=== PATIENT | female | born 1980 | race Caucasian/White ===

== ENCOUNTER 2023-06-18 05:04 | Day surgery (SDC) | payer OTHER | END 2023-06-18 17:15 | disposition home or self-care (01) | LOC: CIR.AMB 05:04 | PROVIDERS: ATTEND Obstetrics & Gynecology | DX: N84.0 Polyp of corpus uteri (principal); D25.0 Submucous leiomyoma of uterus; Z20.822 Contact with and (suspected) exposure to COVID-19 ==